=== PATIENT | male | born 1955 ===

== ENCOUNTER 2024-02-27 06:52 | Day surgery (SDC) | payer OTHER ==
[2024-02-27] MEDS ORDERED: PIPERACILLIN/TAZOBACTAM SODIUM 3.375 GM VIAL IV ONE ×2 (11:15→12:00)
[2024-02-27] MEDS ORDERED: HEMOSTATIC MATRIX 1 KIT KIT TOP ONE (11:15)
[2024-02-27] MEDS ORDERED: POVIDONE-IODINE 118 ML BOTT TOP ONE (11:15)
[2024-02-27] MEDS ORDERED: DIBUCAINE 30 GM TUBE RECTAL ONE (11:30)
[2024-02-27] MEDS ORDERED: LIDOCAINE HCL 1%/EPINEPHRINE 20ML VIAL IJ ONE (11:30)
[2024-02-27] MEDS ORDERED: BUPIVACAINE HCL 30 ML VIAL IJ ONE (11:30)
== END 2024-02-27 15:35 | disposition home or self-care (01) ==
LOC: CIR.AMB 06:52
PROVIDERS: ATTEND Colon & Rectal Surgery
DX: K64.2 Third degree hemorrhoids (principal); K64.4 Residual hemorrhoidal skin tags; K92.2 Gastrointestinal hemorrhage, unspecified; I10 Essential (primary) hypertension; F41.9 Anxiety disorder, unspecified; M19.90 Unspecified osteoarthritis, unspecified site; J45.909 Unspecified asthma, uncomplicated